=== PATIENT | female | born 1945 | race Caucasian/White ===

== ENCOUNTER → 2017-01-16 | Outpatient (CLI) | payer MEDICARE, OTHER ==
[~2017-01-16] MED LIST: ABILIFY PO; ALBUTEROL17 G1 IH; AMITRIPTYLINE H50 MG PO; AMITRYPTYLINE PO; AUGMENTIN875 M1 PO; BENZONATATE PO; CYMBALTA PO; DOXYCYCLINE PO; DULOXETINE HCL60 MG PO; HYCODAN PO; HYCODAN60 ML 5MG/ PO; KLONOPIN PO; MEDROL PO; SYNTHROID0.05 MG PO; ZITHROMAX PO
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
== END | disposition home or self-care (01) ==
LOC: SRAD 19:59
DX: M54.2 Cervicalgia (principal); M79.602 Pain in left arm; M47.892 Other spondylosis, cervical region
CPT/HCPCS: 72040